=== PATIENT | male | born 1950 | race Caucasian/White ===

== ENCOUNTER → 2018-01-06 | Outpatient (CLI) | payer OTHER | LOC: FIMAGING 12:23 | PROVIDERS: ATTEND Internal Medicine | DX: N20.2 Calculus of kidney with calculus of ureter (principal); K57.30 Diverticulosis of large intestine without perforation or abscess without bleeding ==

== ENCOUNTER → 2018-02-13 | Outpatient (CLI) | payer OTHER | LOC: FIMAGING 12:37 | PROVIDERS: ATTEND Urology | DX: N20.0 Calculus of kidney (principal); N28.1 Cyst of kidney, acquired ==

== ENCOUNTER → 2018-07-01 | Outpatient (CLI) | payer OTHER | LOC: FIMAGING 18:32 | PROVIDERS: ATTEND Psychiatry & Neurology Neurology | DX: R90.82 White matter disease, unspecified (principal); G31.9 Degenerative disease of nervous system, unspecified ==

== ENCOUNTER 2018-07-24 14:35 | Inpatient (IN) | payer OTHER ==
[2018-07-24] MEDS ORDERED: LORazepam 2 MG/ML INJ IVP ONE ×2 (15:02→16:45)
[2018-07-24] MEDS ORDERED: NS 1,000 ML IV ONE (15:02)
--- NOTE | 2018-07-24 15:04 | EDPHY ---
H & P Stated Complaint: SOB, anxiety. Time Seen by Provider: 07/24/18 14:56 HPI/ROS: CHIEF COMPLAINT: Anxiety attack HISTORY OF PRESENT ILLNESS: The patient is a 68-year-old man who comes to the emergency department complaining of lightheadedness and anxiety attack after being at the [employer]. He states that he is placing a claim against [employer] and went to [facility] today to see if they had responded. The lady who was helping him with a claim was not there. He felt extremely disappointed and became lightheaded and did not feel that he could walk all the way back 15 blocks to his senior living house where he is staying for history of substance abuse. He reports that he has had lightheadedness off and on like this for several years and has had multiple cardiac workups all of which have been negative including recent navicular stress tests. He also reports history of migraines and follows by Neurology with recent MRI which was negative. He called EMS who brought him here. A his symptoms he thinks are now resolved . Severity: Severe Modifying factors time REVIEW OF SYSTEMS: Constitutional: denies: chills, fever, recent illness, recent injury EENTM: denies: blurred vision, double vision, nose congestion Respiratory: denies: cough, shortness of breath Cardiac: See HPI denies: chest pain, irregular heart rate, palpitations Gastrointestinal/Abdominal: denies: abdominal pain, diarrhea, nausea, vomiting, blood streaked stools Genitourinary: denies: dysuria, frequency, hematuria, pain Musculoskeletal: denies: joint pain, muscle pain Skin: denies: lesions, rash, jaundice, bruising Neurological: denies: headache, numbness, paresthesia, tingling, dizziness, weakness Hematologic/Lymphatic: denies: blood clots, easy bleeding, easy bruising Immunologic/allergic: denies: HIV/AIDS, transplant 10 systems reviewed and negative except as noted EXAM: GENERAL: Well-appearing, well-nourished and in no acute distress. HEAD: Atraumatic, normocephalic. EYES: Pupils equal round and reactive to light, extraocular movements intact, sclera anicteric, conjunctiva are normal. ENT: TMs normal, nares patent, oropharynx clear without exudates. Moist mucous membranes. NECK: Normal range of motion, supple without lymphadenopathy or JVD. LUNGS: Breath sounds clear to auscultation bilaterally and equal. No wheezes rales or rhonchi. HEART: Regular rate and rhythm without murmurs, rubs or gallops. ABDOMEN: Soft, nontender, normoactive bowel sounds. No guarding, no rebound. No masses appreciated. BACK: No CVA tenderness, no spinal tenderness, step-offs or deformities EXTREMITIES: Normal range of motion, no pitting or edema. No clubbing or cyanosis. NEUROLOGICAL: Cranial nerves II through XII grossly intact. Normal speech, normal gait. 5/5 strength, normal movement in all extremities, normal sensation , normal reflexes PSYCH: Normal mood, normal affect. SKIN: Warm, dry, normal turgor, no visible rashes or lesions. Source: Patient Exam Limitations: No limitations - Personal History Current Tetanus/Diphtheria Vaccine: Unsure Current Tetanus Diphtheria and Acellular Pertussis (TDAP): Unsure - Medical/Surgical History Hx Asthma: No Hx Chronic Respiratory Disease: No Hx Diabetes: No Hx Cardiac Disease: No Hx Renal Disease: No Hx Cirrhosis: No Hx Alcoholism: No Hx HIV/AIDS: No Hx Splenectomy or Spleen Trauma: No Other PMH: MIGRAINES, kidney stones, - Family History Significant Family History: No pertinent family hx - Social History Smoking Status: Never smoked Alcohol Use: Sober Drug Use: None Constitutional: Initial Vital Signs Temperature (C) 36.6 C 07/24/18 14:41 Heart Rate 84 07/24/18 14:41 Respiratory Rate 18 07/24/18 14:41 Blood Pressure 151/81 H 07/24/18 14:41 O2 Sat (%) 97 07/24/18 14:41 O2 Delivery Mode Room Air Allergies/Adverse Reactions: morphine Allergy (Mild, Verified 07/24/18 19:18) Itching Home Medications: Medication Instructions Recorded Ondansetron Odt [Zofran Odt 4 mg 8 mg PO TID PRN #10 tab 08/03/16 (*)] Sumatriptan Succinate [Imitrex] 100 mg PO DAILY PRN 07/24/18 Tamsulosin HCl [Flomax 0.4 MG (*)] 0.4 mg PO DAILY 07/24/18 oxyCODONE HCL/ACETAMINOPHEN 1 each PO QID PRN 07/24/18 [Percocet 5-325 mg Tablet] Medical Decision Making - Diagnostics EKG Interpretation: An EKG obtained and was read and documented in trace view. Please see trace view for full reading and report. Sinus rhythm, no acute ischemic changes Imaging Results: Imaging Impressions Head CT 07/24/18 16:44 Impression: No acute intracranial process. Findings and recommendations discussed with DIEGO ONEAL at 1658 hour, 2017. A test result has been communicated to a licensed care provider and documented in the [employer] Critical Result system on 07/24/2018 16:59, Message ID [id number]. Head CTA 07/24/18 16:44 Impression: Small amount of atherosclerotic disease in the proximal right vertebral artery causing approximately 50% stenosis. Otherwise, normal CT angiogram of the head and neck. Stenoses are calculated using [place] Symptomatic Carotid Endarterectomy Trial (NASCET) criteria. Findings and recommendations discussed with DIEGO ONEAL at 1736 hour, 2017. Neck CTA 07/24/18 16:44 Impression: Small amount of atherosclerotic disease in the proximal right vertebral artery causing approximately 50% stenosis. Otherwise, normal CT angiogram of the head and neck. Stenoses are calculated using [place] Symptomatic Carotid Endarterectomy Trial (NASCET) criteria. Findings and recommendations discussed with DIEGO ONEAL at 1736 hour, 2017. Imaging: Discussed imaging studies w/ packing and wrapping supervisor Radiologist ED Course/Re-evaluation: We had a long discussion with the patient about his chronic symptoms. He is now asymptomatic. I offered to perform lab work and imaging. His EKG is reassuring as are his vital signs and exam. He felt that repeat lab work was unlikely to be diagnostic and I agreed. I expressed my concern that much of his symptoms seem to be stress related or emotionally driven. He agreed. He elected to be discharged. He does have a correctional casework specialist at the [facility] [place]. I will ask [facility] to give him resources for other therapeutic options. 4:15 p.m. [facility] has given the patient resources and he is currently on the phone making an appointment with them. 4:45 p.m. while being discharged the patient was displaying difficulty with word -finding and seemed to have some confusion with following commands. It is difficult to assess. I suspect that this is part of his anxiety reaction but we have called a stroke alert. I will also administer Ativan. he is moving all of his extremities. When you ask him if he thinks this is part of his anxiety reaction he says yes but then continues to stumble over words and cannot explain himself. No slurred speech. No facial droop. 5:40 p.m. I discussed the case with [facility]. They are also on the fence about whether not this represents true ischemia but do recommend giving tPA. We will give tPA and admit to the ICU. 6:00 p.m. I discussed the case with Dr. Fabby Chavez who will admit to the ICU. Differential Diagnosis: Partial list of the Differential diagnosis considered include but were not limited to; anxiety, arrhythmia, dehydration and although unlikely based on the history and physical exam, I also considered acute coronary disease, CVA, seizure. I discussed these differential diagnoses and the plan with the patient as well as the usual and expected course. The patient understands that the diagnosis is provisional and that in medicine we are not always correct and that further workup is often warranted. Usual and customary warnings were given. All of the patient's questions were answered. The patient was instructed to return to the emergency department should the symptoms at all worsen or return, otherwise to followup with the physician as we discussed. Critical Care Time: Critical care time spent by me, Dr. Oneal exclusive with this patient was 45 minutes, exclusive of the PA time exclusive of procedures. The organ system that was at risk was diagnostics and I gave medications, consultation and admission to prevent worsening of the patient's condition - Data Points Laboratory Results: Laboratory Results 07/24/18 15:35 07/24/18 15:35 07/24/18 07/24/18 07/24/18 16:52 15:35 15:35 WBC RBC Hgb POC Hgb 16.3 gm/dL gm/dL (13.7-17.5) Hct POC Hct 48 % % (40-51) MCV MCH MCHC RDW Plt Count MPV Neut % (Auto) Lymph % (Auto) Blair % (Auto) Eos % (Auto) Baso % (Auto) Nucleat RBC Rel Count Absolute Neuts (auto) Absolute Lymphs (auto) Absolute Monos (auto) Absolute Eos (auto) Absolute Basos (auto) Absolute Nucleated RBC Immature Gran % Immature Gran # PT 12.7 SEC SEC (12.0-15.0) INR 0.93 (0.83-1.16) APTT 27.7 SEC SEC (23.0-38.0) POC Sodium 143 mEq/L mEq/L (135-145) Sodium 141 mEq/L mEq/L (135-145) POC Potassium 3.3 mEq/L mEq/L (3.3-5.0) Potassium 4.1 mEq/L mEq/L (3.3-5.0) POC Chloride 106 mEq/L mEq/L (97-110) Chloride 107 mEq/L mEq/L (97-110) Carbon Dioxide 22 mEq/l mEq/l (22-31) Anion Gap 12 mEq/L mEq/L (8-16) POC BUN 15 mg/dL mg/dL (7-23) BUN 16 mg/dL mg/dL (7-23) Creatinine 1.1 mg/dL mg/dL (0.7-1.3) POC Creatinine 1.0 mg/dL mg/dL (0.7-1.3) Estimated GFR > 60 Glucose 78 mg/dL mg/dL (70-100) POC Glucose 95 mg/dL mg/dL (70-100) Calcium 9.9 mg/dL mg/dL (8.5-10.4) 07/24/18 15:35 WBC 8.95 10^3/uL 10^3/uL (3.80-9.50) RBC 5.27 10^6/uL 10^6/uL (4.40-6.38) Hgb 16.5 g/dL g/dL (13.7-17.5) POC Hgb Hct 47.2 % % (40.0-51.0) POC Hct MCV 89.6 fL fL (81.5-99.8) MCH 31.3 pg pg (27.9-34.1) MCHC 35.0 g/dL g/dL (32.4-36.7) RDW 12.2 % % (11.5-15.2) Plt Count 222 10^3/uL 10^3/uL (150-400) MPV 10.5 fL fL (8.7-11.7) Neut % (Auto) 59.4 % % (39.3-74.2) Lymph % (Auto) 28.2 % % (15.0-45.0) Blair % (Auto) 10.6 % % (4.5-13.0) Eos % (Auto) 0.8 % % (0.6-7.6) Baso % (Auto) 0.6 % % (0.3-1.7) Nucleat RBC Rel Count 0.0 % % (0.0-0.2) Absolute Neuts (auto) 5.32 10^3/uL 10^3/uL (1.70-6.50) Absolute Lymphs (auto) 2.52 10^3/uL 10^3/uL (1.00-3.00) Absolute Monos (auto) 0.95 10^3/uL H 10^3/uL (0.30-0.80) Absolute Eos (auto) 0.07 10^3/uL 10^3/uL (0.03-0.40) Absolute Basos (auto) 0.05 10^3/uL 10^3/uL (0.02-0.10) Absolute Nucleated RBC 0.00 10^3/uL 10^3/uL (0-0.01) Immature Gran % 0.4 % % (0.0-1.1) Immature Gran # 0.04 10^3/uL 10^3/uL (0.00-0.10) PT INR APTT POC Sodium Sodium POC Potassium Potassium POC Chloride Chloride Carbon Dioxide Anion Gap POC BUN BUN Creatinine POC Creatinine Estimated GFR Glucose POC Glucose Calcium Medications Given: Sodium Chloride (Ns) 1,000 mls @ 100 mls/hr IV CONT MARTIN Stop: 01/20/19 20:29 Last Admin: 07/24/18 20:57 Dose: 1,000 mls Oxycodone/Acetaminophen (Percocet 5/325) 1 tab PO QID PRN PRN Reason: Pain, Moderate Stop: 08/03/18 20:16 Last Admin: 07/24/18 20:56 Dose: 1 tab Discontinued Medications Alteplase, Recombinant (Activase) 8.56306 mg 0.09 mg/kg (8.71466 mg) IV ONCE ONE PRN Reason: Protocol Stop: 07/24/18 17:40 Last Admin: 07/24/18 17:51 Dose: 8.38272 mg Alteplase, Recombinant (Activase) 78.81381 mg 0.81 mg/kg (78.69129 mg) IV ONCE ONE PRN Reason: Protocol Stop: 07/24/18 17:40 Last Admin: 07/24/18 17:52 Dose: 78.18165 mg Sodium Chloride (Ns) 1,000 mls @ 0 mls/hr IV EDNOW ONE; Wide Open PRN Reason: Protocol Stop: 07/24/18 15:03 Last Admin: 07/24/18 15:22 Dose: Not Given Sodium Chloride (Ns) 50 mls @ 0 mls/hr IV EDNOW ONE PRN Reason: Per Protocol Stop: 07/24/18 17:40 Last Admin: 07/24/18 17:53 Dose: 50 mls Lorazepam (Ativan Injection) 0.5 mg IVP EDNOW ONE Stop: 07/24/18 15:03 Last Admin: 07/24/18 15:22 Dose: Not Given Lorazepam (Ativan Injection) 1 mg IVP EDNOW ONE Stop: 07/24/18 16:46 Last Admin: 07/24/18 17:01 Dose: 1 mg Point of Care Test Results: Chemistry 07/24/18 16:52 POC Sodium 143 mEq/L mEq/L (135-145) POC Potassium 3.3 mEq/L mEq/L (3.3-5.0) POC Chloride 106 mEq/L mEq/L (97-110) POC BUN 15 mg/dL mg/dL (7-23) POC Creatinine 1.0 mg/dL mg/dL (0.7-1.3) POC Glucose 95 mg/dL mg/dL (70-100) ISTAT H&H 07/24/18 16:52 POC Hgb 16.3 gm/dL gm/dL (13.7-17.5) POC Hct 48 % % (40-51) Departure - Departure Disposition: [facility] Clinical Impression: Anxiety, Trouble with word finding Condition: Critical
--- NOTE | 2018-07-24 15:13 | CPEKG ---
Test Reason : OPEN Blood Pressure : / mmHG Vent. Rate : 070 BPM Atrial Rate : 071 BPM P-R Int : 159 ms QRS Dur : 100 ms QT Int : 417 ms P-R-T Axes : 038 018 014 degrees QTc Int : 450 ms Sinus rhythm Confirmed by Eulogio Fitzpatrick ([id number]) on 07/24/2018 3:12:56 PM Referred By: Confirmed By:Eulogio Fitzpatrick
--- NOTE | 2018-07-24 16:27 | ASMTLCPROG ---
Notes Note: Notes: Spoke with patient about his anxiety. PT was manipulative talking about his anxiety and how poorly the [facility] [place] has treated thim. TLC listened using a Rogerian Person centered approach, validated his concnerns and coached the pt with deep breathing exercises to help reduce anxiety as well as offered him the information to sign up with [facility] to become an open client and recieve counseling services. Pt was open to this, TLC dialed the screaning intake number for pt (since he was too far to reach the phone) and hand him the phone to set up his appt. PT was also given the [facility] resources sheet with the crisis lines, various centers and screening centers. Date Signed: 07/24/2018 04:26 PM Electronically Signed By:Curt Garcia
[2018-07-24] MEDS ORDERED: IOPAMIDOL (ISOVUE 370) 100 ML BTL IV ONE (16:46)
[2018-07-24 16:50] LABS: PLATELET COUNT 222 10^3/uL (150-400)
[2018-07-24 17:28] LABS: INR 0.93 (0.83-1.16); PROTIME(PATIENT) 12.7 SEC (12.0-15.0)
[2018-07-24] MEDS ORDERED: ALTEPLASE 100 MG/100 ML VIAL IV ONE ×2 (17:37→17:39)
[2018-07-24] MEDS ORDERED: NS 50 ML IV ONE (17:39)
[2018-07-24] MEDS ORDERED: ALTEPLASE 1 MG/ML SYR IV ONE (17:39)
[2018-07-24] MEDS ORDERED: ONDANSETRON DISINTEGRATING 4 MG TAB PO PRN (20:17)
[2018-07-24] MEDS ORDERED: ONDANSETRON 4 MG/2 ML VIAL IVP PRN (20:18)
[2018-07-24] MEDS ORDERED: ACETAMINOPHEN 325 MG TAB PO PRN (20:18)
[2018-07-24] MEDS ORDERED: NS 1,000 ML IV SCH (20:30)
[2018-07-24] MEDS: OXYCODONE/APAP 5/325 TAB PO PRN (20:56)
--- NOTE | 2018-07-24 21:16 | GHP ---
DATE OF ADMISSION: 07/24/2018 CHIEF COMPLAINT: Aphasia. HISTORY: Jose is a 68-year-old male who lives in a shelter house for a history of cocaine abuse, alt [place] he has not used for 10 months. Today he walked 15 blocks from his shelter house for the [place] and got very lightheaded with this. He got short of breath and the more he tried to take deep b reaths the more short of breath he would get. He describes himself as being extremely anxious. He p resented to the emergency room. The ER physician thought this was likely anxiety related and they we re planning to discharge him from the emergency room. While he was getting discharge instructions he suddenly had the acute onset of aphasia. He had word-finding difficulty and confusion and a stroke a lert was called. [facility] evaluated him and recommended tPA. The patient's word-finding d ifficulty is now completely resolved. The patient claims to have no memory of the event and does not remember having all of this occur. He describes a history of executive cognitive function loss for which he is seeing a neuropsychologist, Dr. Lazo. He states he frequently will have these transient episodes of aphasia related to this cognitive decline. PAST MEDICAL HISTORY: 1. Migraine headaches. 2. BPH. 3. Kidney stones. 4. Dementia, which he describes as executive cognitive function loss. This was diagnosed by his jazz ropsychologist Dr. Lazo. 5. Anxiety. MEDICATIONS: Please see the computer record for a full detailed list. ALLERGIES: To morphine. SOCIAL HISTORY: Quit smoking at age 29. Drinks very little alcohol. In a shelter house for history of cocaine abuse for which he has been clean for 10 months. 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 REVIEW OF SYSTEMS: Complete review of systems obtained. Review of systems negative for constitution al, HEENT, GI, pulmonary, cardiovascular, , hematology, skin, endocrine, psychiatric, except for po sitives as in HPI. FAMILY HISTORY: Reviewed and noncontributory to presenting complaint. PHYSICAL EXAMINATION: GENERAL: Well-developed, well-nourished male in no distress. VITALS: Temper ature 36.5, pulse 91, blood pressure 146/90, saturating 90% on 2 L. EYES: Normal conjunctivae. Pup ils react to light. ENT: Normal ears and nose. Hearing intact. Normal teeth. Oropharynx moist. NECK: Trachea midline. No thyromegaly. CHEST: Normal . Chest rise bilaterally. CARDIO VASCULAR SYSTEM: Regular rhythm. No murmur. EXTREMITIES: No extremity edema. ABDOMEN: Soft, non tender. No hepatosplenomegaly. SKIN: Warm, dry, intact. No rash. MUSCULOSKELETAL: No cyanosis o r clubbing. Strength 5/5, upper and lower extremities. NEURO: Cranial nerves intact. Normal sensa tion to light touch. PSYCHIATRIC: Alert and oriented x3. Normal affect. Normal judgment. Normal m mantua. LABORATORIES: White count 8.95, hematocrit 47.2, platelets 222. Sodium 141, potassium 4.1, chloride 107, chloride 22, BUN 16, creatinine 1.1, glucose 78. Troponins negative. EKG reviewed by me. My personal interpretation is normal sinus rhythm, no ST-T wave changes. Head CT is negative. CT angio gram of the head and neck shows 50% vertebral stenosis. This case was discussed with Dr. Fitzpatrick, [facility] emergency room physician, regarding the ER course. ASSESSMENT AND PLAN: 1. Possible stroke status post tPA, although there is some concern by the emergency room physician t ector this may have actually been an anxiety reaction, but Magdy Meade recommended tPA based on their exam ination during the event and it was administered. According to the patient he has frequent, transien t aphasic episodes which he attributes to this loss of executive cognitive function he has been diagn osed with. Will monitor in ICU with post-tPA protocol. Check an echocardiogram and lipids. Will co nsult Neurology in the morning. 2. Anxiety. The patient feels very strongly that much of his presentation today was an anxiety reac tion. He is requesting a referral to [facility]. 3. Dementia, being described as decreased executive cognitive functioning as discussed above. 4. Benign prostatic hypertrophy. Continue Flomax. 5. Code status, full. 6. Admission status. Will admit to observation. Reevaluate tomorrow regarding the ongoing need for hospitalization. 7. Deep vein thrombosis prophylaxis. He is low risk post-tPA. /[id number]/MODL
[2018-07-24] MEDS ORDERED: SODIUM CL NASAL 45 ML BTL EACHNARE PRN (21:22)
[2018-07-24] MEDS ORDERED: NS 500 ML IV ONE (23:22)
[2018-07-25] MEDS ORDERED: PROMETHAZINE HCL 25 MG/ML INJ IVP PRN (07:54)
--- NOTE | 2018-07-25 08:27 | GHP ---
DATE OF ADMISSION: 07/24/2018 HISTORY: The patient is a 68-year-old gentleman who I have known for many years in the office since 2010. He has a 30 year history of intractable headaches and has been on all standard migraine prophy lactic agents over the years without sustained benefit and has had overuse of sumatriptan for many ye ars, but it has been the strategy that has given him reasonable relief of headaches. Yes[place], [place] and started experiencing some lightheadedness and anxiety and says that he was not sure what was happening, but came to the hospital for evaluation. He was thought to be havi ng probable anxiety or panic attack and was going to be discharged when he became aphasic which led t o a stroke alert considerations and tPA via [facility]. His CT angiogram was unremarkabl e for any large vessel stenosis or embolus evidence and CT was unremarkable as well. We have followe d him over the years with cognitive questions and repeat neuropsych testing has shown some mild cogni tive impairment or normal aging with complex disease related to his medications and/or history of sub stance abuse. He has been sober for many months now from cocaine use. The patient does feel that an xiety is the main problem. He has had resolution of his symptoms back to his baseline and does not h ave any complaints this morning other than some headache. PAST MEDICAL HISTORY: Kidney stone. Some mild cognitive impairment but not dementia. Anxiety. His tory of cocaine abuse. ALLERGIES: Allergy to morphine. SOCIAL HISTORY: No smoking since age 29. Occasional alcohol. Currently in a care home house with his tory of cocaine abuse and reports sobriety over 10 months. MEDICATIONS: Prior to coming to the hospital, his medications were tamsulosin, sumatriptan which he takes as many as 18 per month, Zofran 4 mg as needed, and oxycodone as well as some Xanax. I reviewe d the [place] PDMP and he had refills of oxycodone in February with 20 tablets as well as receiving some Xanax. This was through either Dr. Rebolledo or Dr. Camila Sanchez at the [facility]. In reviewing his narcotic usage over the last year, he has had 95 tablets prescribed since July 2017. REVIEW OF SYSTEMS: Negative for chest pain, palpitation, shortness of breath. PHYSICAL EXAMINATION: VITAL SIGNS: Blood pressure 117/76. Pulse of 61. Respirations 14. Temperat ure is 36.9. GENERAL: He is well developed, no acute distress. EYES: Clear. NECK: Supple. No b ruits or masses. CARDIAC: Regular rate and rhythm. No murmur. NEUROLOGIC: He is awake, alert, at tentive, and oriented to person, place, and time. He can answer questions and follow commands and [place] s no aphasia. Pupils 1 mm and reactive. Extraocular movements intact. No visual field loss. Stephanie l facial sensation and strength. Palate elevates symmetrically. Tongue protrudes midline. Motor ex am, normal muscle bulk and tone with 5/5 strength and no abnormal movements. Sensation is preserved for temperature and light touch. Reflexes 1+. NIH Stroke Scale is 0. IMPRESSION: Total unit time of 55 minutes. The patient has experienced an episode of aphasia in the setting of further profound anxiety. He has a long history of migraine and analgesic overuse with t riptans, but this has been something that has been as a last resort because of failure of so many oth er medications. Precisely what happened is not clear. I do not think he actually had a true ischemi c event, but might be related to anxiety or panic as well as migraine equivalent phenomena. In any c ase, he did receive tPA and is back to his baseline and will need 24 hours in the ICU without antipla telet therapy and then can be placed on 1 aspirin per day. We have recently tried to start him on movig (new medication for migraine prophylaxis) and he is awaiting the arrival of that medication at home soon. He needs to get back into regular therapy. He says his current psychotherapist is ricardo flowers but he is going to try to find someone with [email or web address]. With regard to treatme nt of the pain, he cannot get antiinflammatories in the first 24 hours after tPA, so he could still h ave a few doses of oxycodone as needed, and I will also put an order for IV Benadryl and Phenergan. He has high risk for inappropriate use of medicine, although there is not any overt evidence of misus e of the narcotics. I would not recommend use of the narcotics as an outpatient for headaches. If h e needs benzodiazepines for anxiety, that should be administered under the care of a psychiatrist patti vo with very close followup. He has an LDL cholesterol level of 63. I do not recommend we put him on a statin at this point, given the fact that I do not think this was a TIA or stroke. Echocardiog mode is pending. We will continue to follow up with him as an outpatient. /[id number]/MODL
[2018-07-25] MEDS: ACETAMINOPHEN 500 MG TAB PO SCH ×3 (10:29→21:30)
[2018-07-25] MEDS: TAMSULOSIN HCL 0.4 MG CAP PO SCH (10:30)
--- NOTE | 2018-07-25 11:43 | GCON ---
CRITICAL CARE CNS CONSULTATION REASON FOR ADMISSION: Possible stroke, status post tPA. The patient is a very pleasant 68-year-old white male with a past medical history of dementia, anxiety, kidney stones, benign prostatic hypertro phy, and migraine headaches. He is a previous drug user and currently resides at a detention house. H sabino became lightheaded and short of breath, which caused him extreme anxiety. He was brought to the ergency room, where he was being discharged when he was found to have a sudden onset of aphasia and w ord-finding difficulty. [facility] was consulted, and they recommended tPA, which he was giv en. He was subsequently admitted to the intensive care unit. His aphasia has resolved. In discussi on with the patient, he states overall he feels quite well. He denies any chest pain, pleuritic-type chest pain, or anginal equivalent. There is no fever or night sweats. He denies any nausea, vomiti ng, or diarrhea. His headaches are improved. PAST MEDICAL HISTORY: Significant for anxiety, dementia, kidney stones, benign prostatic hypertrophy , and migraines. ALLERGIES: Morphine. SOCIAL HISTORY: Previous smoker, none since age 29. He denies any alcohol use. He is currently in a detention house for cocaine abuse. Work history: He is retired from retail management. He is singl e, without children. He has lived in [place] for many years, is originally from [place]. FAMILY HISTORY: Noncontributory. REVIEW OF SYSTEMS: A 10-point review of systems was performed and was negative except for what is li sterachel in HPI. PHYSICAL EXAM: VITAL SIGNS: Blood pressure is 101/58, pulse 72, respirations 15, temperature 37.0, oxygen saturation 95% on room air. GENERAL: He is a well-developed, well-nourished 68-year-old whit e male, who is resting comfortably, in no acute distress. HEENT: Eyes PERRLA, EOMI. Throat shows n o erythema or tonsilar hypertrophy. NECK: Supple. No cervical adenopathy. HEART: Regular rate an d rhythm, without murmurs, rubs, or gallops. LUNGS: Diminished breath sounds, but no wheeze. ABDOM EN: Soft, nontender. Bowel sounds are present in all 4 quadrants. EXTREMITIES: No clubbing, cyano sis, or edema. LABORATORIES: White count is 8.9, hemoglobin 16, hematocrit 47, platelet count is 222. INR is 0.93. Sodium 143, potassium 3.3, chloride 106, CO2 is 22, BUN 15, creatinine 1.1, glucose is 78. IMPRESSION: 1. Possible stroke, status post tissue plasminogen activator. 2. Expressive aphasia is resolved. 3. History of migraine headaches. 4. Dementia. 5. Anxiety. 6. Benign prostatic hypertrophy. 7. Kidney stones. RECOMMENDATIONS: 1. Close neurologic and cardiovascular monitoring. 2. DVT and PE prophylaxis. 3. Stress ulcer prophylaxis. 4. PT and OT. 5. Speech. /[id number]/MODL
--- NOTE | 2018-07-25 13:12 | HOSPPROG ---
Hospitalist Progress Note Assessment/Plan: Expressive aphasia / possible CVA s/p TpA - NIHSS 0. -repeat CT this evening. If neg, start ASA 81 mg daily -neurology consult appreciated, doubts true ischemic event Migraine [place] - pt received benadryl and phenergan and is now resting comfortably -f/u with neurology for new preventive medicine Anxiety - prn ativan while here, but will not d/c with bzd Rx due to risk of medication overuse -outpt f/u with pcp to consider initiation of ssri or other preventive options Full code Dispo - likely home in am Subjective: Pt is resting comfortably after receiving phenergan and benadryl for migraine [place]. No fevers/chills. No neurologic deficits. Objective: Vital Signs Temp Pulse Resp BP Pulse Ox 37.0 C 58 L 17 109/57 L 98 07/25/18 10:00 07/25/18 12:00 07/25/18 12:00 07/25/18 12:00 07/25/18 12:00 07/24/18 07/25/18 07/26/18 05:59 05:59 05:59 Intake Total 2957 Output Total 1150 Balance 1807 PT 12.7 SEC (12.0-15.0) 07/24/18 15:35 INR 0.93 (0.83-1.16) 07/24/18 15:35 - Physical Exam Constitutional: no apparent distress Cardiovascular: regular rate and rhythym Respiratory: no respiratory distress Neurologic: AAOx3 ICD10 Worksheet Patient Problems: Problems Problem Status Onset Anxiety Acute Migraine with status migrainosus Acute
--- NOTE | 2018-07-25 13:35 | ECHO ---
[email or web address] [address] Main: [phone] Fax: Transthoracic Echocardiogram Name: SAMIRA GRANT MR#: [id number] Study Date: 07/25/2018 Study Time: 11:15 AM Date of : 1950 Age: 68 year(s) Height: 180.3 cm (71 in.) Weight: 95.26 kg (210 lb.) BSA: 2.15 m2 Gender: Male Examination: Echo Indication: Ischemic Stroke Image Quality: Adequate Contrast: Requested by: Fabby Chavez BP: 105 mmHg/51 mmHg Heart Rate: Rhythm: Indication: Ischemic Stroke Procedure Staff Driver Helper: Lilian Monahan [facility] Reading Physician: Kanchan Tidwell MD Requesting Provider: Conclusions: Normal size left ventricle. Mild concentric LV hypertrophy. Normal global systolic LV function. The ejection fraction is visually estimated to be 55 %. No regional wall motion abnormality. Normal diastolic LV function. Mildly dilated right ventricle. Mildly reduced RV function. An agitated saline study was performed and was negative for intracardiac shunting. The right atrium is mildly dilated. Mild mitral valve regurgitation is present. Mild tricuspid regurgitation is present. Right ventricular systolic pressure measures 37mmHg. No pericardial effusion. There is no previous echocardiogram for comparison. No obvious cardiac source of embolism seen on this study. KENYATTA is more sensitive to detect cardiac source of embolism. Measurements: Chambers Valvular Assessment AV/MV Valvular Assessment TV/PV Normal Normal Normal Name Value Range Name Value Range Name Value Range Ao Shweta (2D): 3.1 cm (1.4 cm-2.6 AV Vmax: 1.20 m/s (1 m/s-1.7 TR Vmax: 2.81 mm/s ( - ) cm) m/s) TR PGmax: 32 mmHg ( - ) IVSd (2D): 1.1 cm (0.6 cm-1.1 AV maxP mmHg ( - ) syst. PAP: 37 mmHg ( - ) cm) AV meanP mmHg ( - ) PV Vmax: 1.32 m/s (0.6 m/s-0.9 LVDd (2D): 5.1 cm (4.2 cm-5.9 REJI (VTI): 2.7 cm ( - ) m/s) cm) MV E Vmax: 0.58 m/s ( - ) PV PGmax: 7 mmHg ( - ) LVDs (2D): 3.3 cm (2.1 cm-4 MV A Vmax: 0.62 m/s ( - ) cm) MV E/A: 0.94 ( - ) Patient: SAMIRA GRANT Study Date: 07/25/2018 Page 1 of 3 11:15 AM LVPWd (2D): 1.1 cm (0.6 cm-1 MV PHT: 0.058 s ( - ) cm) MVA (PHT): 3.8 s ( - ) LVOTd 2.1 cm 2.1 cm mm LVEF (BP): 52 % (>=55 %) Visual EF: 55 % RVDd(2D): 3.8 cm (1.9 cm-3.8 cmmm) Continued Measurements: Chambers Valvular Assessment AV/MV Valvular Assessment TV/PV Name Value Name Value Name Value LADs: 3.8 cm MV DecTime: 194 m/s CVP (est.): 5 mmHg LADs Lon.2 cm MV E' Septal: 0.07 m/s LA Area: 17.1 cm2 MV E/E' Septal: 8.50 LA Volume: 50 ml MV E/E' Lateral: 5.30 LA Volume Index: 23.3 ml/m2 RA Area: 20.2 cm2 Additional Vessels Name Value Ao Ascendin.2 cm Findings: Left Ventricle: Normal size left ventricle. Mild concentric LV hypertrophy. Normal global systolic LV function. The ejection fraction is visually estimated to be 55 %. No regional wall motion abnormality. Normal diastolic LV function. Right Ventricle: Mildly dilated right ventricle. Mildly reduced RV function. Left Atrium: The left atrium is normal in size. An agitated saline study was performed and was negative for intracardiac shunting. Right Atrium: The right atrium is mildly dilated. Mitral Valve: The mitral valve is normal in appearance and function. Mild mitral valve regurgitation is present. No mitral stenosis is present. Aortic Valve: The aortic valve is tri-leaflet. There is no significant aortic valve regurgitation. No aortic valve stenosis is present. Tricuspid Valve: The tricuspid valve is normal in appearance and function. Mild tricuspid regurgitation is present. The pulmonary artery pressure is normal. Right ventricular systolic pressure measures 37mmHg. Pulmonic Valve: The pulmonic valve is normal in appearance and function. Aorta: The aorta is normal. Normal size aortic root measuring 3.1 cm. Normal size ascending aorta measuring 3.2 cm. IVC: Difficult visualization of subcostals. Pericardium: No pericardial effusion. There is pericardial fat. No pleural effusion. (No Signature Object) Patient: SAMIRA GRANT Study Date: 07/25/2018 Page 2 of 3 11:15 AM Patient: SAMIRA GRANT Study Date: 07/25/2018 Page 3 of 3 11:15 AM [id number]
--- NOTE | 2018-07-25 14:55 | ASMTCMCOM ---
CM Note CM Note Notes: I attempted to meet with patient various times, but he was sleeping. Per chart review, it seems that he's living at the [facility]. In the ED, he was supported by [facility] regarding his desire to connect with [facility]. Case Management will follow up with him to see if he was able to schedule an intake. Patient is on bedrest until tonight; tomorrow PT/OT will evaluate him. I imagine he will be cleared and may discharge independently back to the [facility]. Case Management will follow. Date Signed: 07/25/2018 02:54 PM Electronically Signed By:Christina Jeffers RN
[2018-07-25] MEDS ORDERED: LORazepam 0.5 MG TAB PO PRN (15:23)
[2018-07-26] MEDS: TAMSULOSIN HCL 0.4 MG CAP PO SCH (08:38)
[2018-07-26] MEDS: OXYCODONE/APAP 5/325 TAB PO PRN (08:39)
[2018-07-26] MEDS: ACETAMINOPHEN 500 MG TAB PO SCH (08:40)
[2018-07-26] MEDS ORDERED: ASPIRIN EC 81 MG TAB PO SCH (09:00)
--- NOTE | 2018-07-26 09:14 | PDMN ---
Medical Necessity Medical necessity: Change to IP, as of 07/25/18, per MD; los >2 mn for ongoing management of possible CVA w/expressive aphasia s/p TPA; requiring further ICU monitoring, bed rest, repeat CT, med management & therapies; hx cognitive impairment, anxiety, migraines
--- NOTE | 2018-07-26 09:42 | PDINTPN ---
Client Service Executive Progress Note Assessment/Plan: Assessment: * Migraines * Possible stroke * Status post tPA * Anxiety * Depression * History of substance abuse Plan: Continue present care Likely discharge for home soon Subjective: Sitting up in chair. Resting comfortably. Headaches reasonably well controlled. Objective: Vital Signs Temp Pulse Resp BP Pulse Ox 36.4 C 72 14 121/68 H 94 07/26/18 07:45 07/26/18 07:45 07/26/18 07:45 07/26/18 07:45 07/26/18 07:45 07/25/18 07/26/18 07/27/18 05:59 05:59 05:59 Intake Total 1000 Output Total 1700 Balance -700 PT 12.7 SEC (12.0-15.0) 07/24/18 15:35 INR 0.93 (0.83-1.16) 07/24/18 15:35 - Time Spent With Patient Time Spent With Patient: 25 min of time spent with patient, over 1/2 involved with coordination of care or counseling. Physical Exam - Physical Exam General Appearance: WD/WN, alert EENT: PERRL/EOMI, normal ENT inspection, pharynx normal, TMs normal Neck: non-tender, full range of motion, supple, normal inspection Respiratory: chest non-tender, lungs clear, normal breath sounds Cardiac/Chest: normal peripheral pulses Peripheral Pulses: 2+: carotid (R), carotid (L), femoral (R), femoral (L), dorsalis-pedis (R), dorsalis-pedis (L) Abdomen: normal bowel sounds, non-tender, soft Male Genitalia: deferred Rectal: deferred Skin: normal color, warm/dry Extremities: normal range of motion, non-tender, normal inspection, normal capillary refill Neuro/Psych: no motor/sensory deficits, alert, normal mood/affect, oriented x 3 ICD10 Worksheet Patient Problems: Problems Problem Status Onset Anxiety Acute Migraine with status migrainosus Acute
--- NOTE | 2018-07-26 10:55 | ASMTDCNOTE ---
Case Management Discharge Discharge Order Complete? Answers: Yes Patient to Obtain Answers: Independently Medications Transportation Arranged Answers: Bus Tokens Transport will Pick (Date 07/26/2018 12:00 PM & Time) Discharge Comments Notes: Patient has been discharged. He was given a bus token for transport. Date Signed: 07/26/2018 10:54 AM Electronically Signed By:Meghann Herzog LCSW
--- NOTE | 2018-07-26 10:58 | ASDISCHSUM ---
Discharge Information Plan Status:Home with No Needs Medically Cleared to Leave:07/26/2018 Discharge Date:07/26/2018 CM D/C Disposition:Home, Routine, Self-Care ADT D/C Disposition:Home, Routine, Self-Care Projected Discharge Date:07/26/2018 12:00 PM Transportation at D/C:Bus Ticket Discharge Delay Reason: Follow-Up Date:07/26/2018 12:00 PM Discharge Slot: Final Diagnosis:Migraines, Possible stroke, Anxiety/Depression Placement Information Patient Contact Information Contact Name:JUDE Relationship: Address:[address] Home Phone: City:[place] Alternate Phone: [facility]/Zip Code:[place] [address] Email: Financial Information Financial Class:Medicare Primary Plan Desc:MEDICARE OUTPATIENT Primary Plan Number:[id number] Secondary Plan Desc:HUMANA Secondary Plan Number:[id number] Assessment Information TLC Progress Note Notes Note: Notes: Spoke with patient about his anxiety. PT was manipulative talking about his anxiety and how poorly the [facility] has treated thim. GAVINO listened using a Rogerian Person centered approach, validated his concnerns and coached the pt with deep breathing exercises to help reduce anxiety as well as offered him the information to sign up with [facility] to become an open client and recieve counseling services. Pt was open to this, [facility] dialed the screaning intake number for pt (since he was too far to reach the phone) and hand him the phone to set up his appt. PT was also given the [facility] resources sheet with the crisis lines, various centers and screening centers. Date Signed: 07/24/2018 04:26 PM Electronically Signed By:Curt Garcia [facility] CM Progress Note CM Note CM Note Notes: I attempted to meet with patient various times, but he was sleeping. Per chart review, it seems that he's living at the [facility]. In the ED, he was supported by [facility] regarding his desire to connect with [facility]. Case Management will follow up with him to see if he was able to schedule an intake. Patient is on bedrest until tonight; tomorrow PT/OT will evaluate him. I imagine he will be cleared and may discharge independently back to the [facility]. Case Management will follow. Date Signed: 07/25/2018 02:54 PM Electronically Signed By:Christina Jeffers RN LACE LACE Length of stay for Answers: 2 days current admission Acuity / Level of Answers: Yes Care: Did the patient have an inpatient admission? Comorbidities - select Answers: Cerebrovascular disease all that apply (CVA, TIA, aneurysms, vasc ular dementia) # of Emergency department Answers: 1-2 visits in the last 6 months Social determinants Answers: Mental health diagnosis (anxiety, depression, pers onality disorders, etc.) Lack of community resources and/or lack of social support (no pcp, lives alone, transportation, hiren d) Score: 14 Date Signed: 07/26/2018 10:57 AM Electronically Signed By:Meghann Herzog LCSW Case Management Discharge Plan Note Case Management Discharge Discharge Order Complete? Answers: Yes Patient to Obtain Answers: Independently Medications Transportation Arranged Answers: Bus Tokens Transport will Pick (Date 07/26/2018 12:00 PM & Time) Discharge Comments Notes: Patient has been discharged. He was given a bus token for transport. Date Signed: 07/26/2018 10:54 AM Electronically Signed By:Meghann Herzog LCSW Intervention Information
[2018-07-26 11:41] VITALS: BP 122/69
--- NOTE | 2018-07-30 09:11 | GDS ---
DISCHARGE DIAGNOSES: 1. Expressive aphasia, possibly secondary to cerebrovascular accident, status post tissue plasminoge n activator. 2. Migraine headaches. 3. Anxiety. CONSULTANTS: 1. Dr. Sukhwinder Chew, sample checker. 2. Dr. Yannick Ni, Neurology. HISTORY: For details, please see dictated history and physical dated July 24, 2018. In brief, the patient is a 68-year-old male with a history of migraine headaches and anxiety who presented to [facility] emergency department with aphasia. He was evaluated by [facility] and decision was made t o treat him with tPA. He was thus admitted to the intensive care unit for further management. HOSPITAL COURSE: The patient admitted to ICU. He received tPA in the emergency department and the [facility] 24 hours, tPA protocol was followed. A repeat head CT 24 hours post tPA was negative. He w as evaluated by Neurology and ultimately given his history, this was thought to be less likely second lisette to stroke and may have been an anxiety reaction. His symptoms completely resolved. He will have close followup with his primary care neurologist for ongoing management of his migraine headaches an d anxiety. It is recommended he start a daily aspirin 81 mg; however, this is deferred until he has a discussion with his urologist as he apparently has a prostate biopsy scheduled for later this week; therefore, he will not start the aspirin until it is determined when he will undergo the biopsy. He can start a spirin after that pending clearance by Urology postprocedure. DISPOSITION: Patient is discharged home in stable condition. FOLLOWUP: 1. Dr. Gunner Rebolledo, primary care. 2. Dr. Yannick Ni, Neurology. DISCHARGE MEDICATIONS: Please see [employer] for completed outpatient medication list. New medications on discharge, include aspirin 81 mg p.o. daily to be started after his prostate biops y. He will continue all other outpatient medications as previously prescribed. Discontinued medication: Sumatriptan is discontinued for now given his admission for possible cerebr ovascular accident as this can increase the risk of cardiovascular event. Will have ongoing discussi ons with his neurologist regarding further migraine headache management. /[id number]/MODL
== END 2018-07-26 11:53 | disposition home or self-care (01) | DRG 63 ==
LOC: EDUNIT# → F2N 19:50 → OBSVTOIN 07-25 15:19
PROVIDERS: ADMIT Internal Medicine; ATTEND Internal Medicine
DX: I63.9 Cerebral infarction, unspecified (principal); R47.01 Aphasia; F41.9 Anxiety disorder, unspecified; G43.909 Migraine, unspecified, not intractable, without status migrainosus; E86.9 Volume depletion, unspecified; N40.0 Benign prostatic hyperplasia without lower urinary tract symptoms; F03.90 Unspecified dementia, unspecified severity, without behavioral disturbance, psychotic disturbance, mood disturbance, and anxiety
CPT/HCPCS: 82435-PO; 82565-PO; 82947-PO; 84132-PO; 84295-PO; 84484-PO; 84520-PO; 85014-PO; 92523-GN; 96374; 97161-GP; 97165-GO; 97530-GP; G0378; G8978-GP-CJ; G8979-GP-CI; G8987-GO-CI; G8988-GO-CH; G8989-GO-CH; G9174-GN-CI; G9175-GN-CI; G9176-GN-CI; J1200; J2060; J2550; J2997; Q9967

== ENCOUNTER → 2018-07-29 | Day surgery (SDC) | payer OTHER | END | disposition home or self-care (01) | LOC: BMCIMAGING 07:23 | PROVIDERS: ATTEND Urology | DX: R97.20 Elevated prostate specific antigen [PSA] (principal) ==

== ENCOUNTER 2018-11-26 11:02 | Emergency (ER) | payer OTHER ==
[2018-11-26 11:32] VITALS: BP 153/83
[2018-11-26] MEDS ORDERED: TDAP ADULT 0.5 ML INJ (BOOSTRIX) IM ONE (12:16)
--- NOTE | 2018-11-26 12:31 | EDPHY ---
H & P Smoking Status: Never smoked Time Seen by Provider: 11/26/18 12:16 HPI/ROS: CHIEF COMPLAINT: Abrasion right middle digit HISTORY OF PRESENT ILLNESS: 68-year-old male sustained accidental abrasion is right middle digit in the ER to have tetanus update. Denies pain or discomfort. Denies discoloration. Occurred yesterday. PHYSICAL EXAM (Prior to examination, patient consented to physical exam, hands were washed and my usual and customary physical exam procedures followed) 1) GENERAL: Well-developed, well-nourished, alert and oriented. Appears to be in no acute distress. 2) HEAD: Normocephalic 3) HEENT: sclera anicteric 4) LUNGS: Breathing comfortably. 5) SKIN: Right middle digit distal phalanx palmar aspect minimally appreciable abrasion with no signs of infection. Negative Kanavel. No erythema. Full pain -free range of motion. (Richelle Andrade) Constitutional: Initial Vital Signs Temperature (C) 36.3 C 11/26/18 11:30 Heart Rate 72 11/26/18 11:30 Respiratory Rate 18 11/26/18 11:30 Blood Pressure 153/83 H 11/26/18 11:30 O2 Sat (%) 93 11/26/18 11:30 O2 Delivery Mode Room Air Allergies/Adverse Reactions: morphine Allergy (Mild, Verified 11/26/18 11:32) Itching Home Medications: Medication Instructions Recorded Ondansetron Odt [Zofran Odt 4 mg 8 mg PO TID PRN #10 tab 08/03/16 (*)] Tamsulosin HCl [Flomax 0.4 MG (*)] 0.4 mg PO DAILY 07/24/18 oxyCODONE HCL/ACETAMINOPHEN 1 each PO QID PRN 07/24/18 [Percocet 5-325 mg Tablet] Aspirin EC [Aspirin EC 81 mg (*)] 81 mg PO DAILY #30 tab 07/26/18 MDM/Departure - MDM Medications Given: Discontinued Medications Diphtheria/Tetanus/Acell Pertussis (Boostrix) 0.5 ml IM .ONCE ONE Stop: 11/26/18 12:17 Last Admin: 11/26/18 12:19 Dose: 0.5 ml ED Course/Re-evaluation: The patient's tetanus has been updated. He has no signs of infection. Negative kanavel sign. Given my usual and customary wound precautions instructions. (Richelle Andrade) The patient was evaluated and managed by the Physician Coating Supervisor. My co- signature indicates that I have reviewed this chart and I agree with the findings and plan of care as documented. I am the secondary supervising physician. (Anitha Holt) - Depart Disposition: Home, Routine, Self-Care Clinical Impression: Abrasion of finger Qualifiers: Encounter type: initial encounter Qualified Code(s): S60.419A - Abrasion of unspecified finger, initial encounter Condition: Good Instructions: Abrasion (ED) Referrals: Braden Burroughs MD [Medical Doctor] - 1-2 days without fail
== END 2018-11-26 12:38 | disposition home or self-care (01) ==
DX: S60.412A Abrasion of right middle finger, initial encounter (principal); Z23 Encounter for immunization

== ENCOUNTER 2019-04-19 09:06 | Emergency (ER) | payer OTHER | END 2019-04-19 10:14 | disposition home or self-care (01) ==